=== PATIENT | female | born 1940 | race Hispanic/Latino ===

== ENCOUNTER 2019-04-03 05:51 | Observation (INO) | payer MEDICARE, OTHER ==
[2019-03-30 10:53] LABS: BASOPHILS % 0.5 % (0.0-1.0); EOSINOPHILS # (AUTO) 0.4 (0.0-0.4); EOSINOPHILS % 4.2 % (0.0-6.0); HEMOGLOBIN 13.7 g/dL (12.0-16.0); LYMPHOCYTES # (AUTO) 2.3 (1.0-3.2); LYMPHOCYTES % 26.4 % (18.0-39.1); MEAN CORPUSCULAR HEMOGLOBIN 31.6 pg (28-32); MEAN CORPUSCULAR HGB CONC 33.4 g/dL (31-35); MEAN CORPUSCULAR VOLUME 94.5 fL (81-99); MONOCYTES # (AUTO) 0.6 (0.2-0.8); MONOCYTES % 6.3 % (4.4-11.3); NEUTROPHILS # (AUTO) 5.4 (2.1-6.9); NEUTROPHILS % 62.3 % (38.7-80.0); PLATELET COUNT 266 x10e3/uL (140-360); RED BLOOD COUNT 4.34 x10e6/uL (3.6-5.1); RED CELL DISTRIBUTION WIDTH 13.1 % (11.7-14.4)
[2019-03-30 11:12] LABS: ANION GAP 14.7 mmol/L (8-16); CALCIUM 10.3 mg/dL (8.4-10.2); CREATININE, SERUM 0.96 mg/dL (0.57-1.11); POTASSIUM 4.7 mmol/L (3.5-5.1)
--- NOTE | 2019-03-30 11:39 | Diagnostic Imaging Report ---
Chest, 2 views, 03/30/2019. History: Preop, right knee surgery. Comparison: None available. Findings: The cardiomediastinal silhouette and pulmonary vasculature are within normal limits. The lungs are clear without evidence of consolidation or pleural effusion. Degenerative changes are noted throughout the thoracic spine. There are no acute osseous or soft tissue abnormalities. Impression: No acute cardiopulmonary abnormality. Signed by: Kev Hall on 03/30/2019 11:36 AM
[~2019-04-03] VITALS: Ht 157.5 cm; Wt 74.0 kg
[~2019-04-03 05:51] MED LIST: ALENDRONATE SOD70 MG PO; CALCIUM CARBONATE PO; CHOLECALCIFEROL PO; COQ-10100 MG PO; FARXIGA5 MG PO; JANUVIA100 MG PO; LOSARTAN POTAS100 MG PO; METFORMIN HCL500 MG PO; PRAVASTATIN SOD20 MG PO; SUCRALFATE1 GM PO; ULTRAM50 MG PO
[2019-04-03] MEDS ORDERED: CELECOXIB 200 MG CAP ONE (06:29)
[2019-04-03] MEDS ORDERED: GABAPENTIN 300 MG CAP ONE (06:29)
[2019-04-03] MEDS ORDERED: DEXAMETHASONE SOD PHOS 10 MG/1 ML VIAL ONE (06:29)
[2019-04-03] MEDS ORDERED: CEFAZOLIN SOD 1 GM/NS 50ML 100 ML IV ONE (06:29)
[2019-04-03] MEDS ORDERED: SODIUM CHLORIDE 0.9% 500ML 500 ML ONE (06:42)
[2019-04-03] MEDS ORDERED: VANCOMYCIN HCL 1,000 MG ONE (06:42)
[2019-04-03] MEDS ORDERED: BACITRACIN 50,000 UNIT VIAL ONE (06:43)
[2019-04-03] MEDS ORDERED: TRANEXAMIC ACID 1,000 MG/10 ML ML ONE (06:43)
[2019-04-03] MEDS ORDERED: ROPIVACAINE 246.25 MG, EPINEPHRINE HCL 1:1000 1ML 0.5 MG, CLONIDINE HCL 0.08 MG, KETORO... INJ ONE ×5 (08:45)
[2019-04-03] MEDS: SODIUM CHLORIDE 0.9% 1000ML 1,000 ML IV SCH ×2 (09:05→19:05)
[2019-04-03] MEDS ORDERED: PROMETHAZINE HCL (IM) 25 MG/ML VIAL IM PRN (09:15)
[2019-04-03] MEDS ORDERED: ACETAMINOPHEN 650 MG SUPP PR PRN (09:15)
[2019-04-03] MEDS ORDERED: DOCUSATE SODIUM 100 MG CAP PO PRN (09:15)
[2019-04-03] MEDS ORDERED: HYDROCODONE/APAP 5MG-325MG TAB PO PRN (09:15)
[2019-04-03] MEDS ORDERED: ONDANSETRON HCL INJ 2MG/ML 2ML 2 MG/ML VIAL IV PRN (09:15)
[2019-04-03] MEDS ORDERED: KETOROLAC TROMETHAMINE 30 MG/ML VIAL IV PRN (09:15)
[2019-04-03] MEDS ORDERED: HYDROCODONE/APAP 7.5MG-325MG 1 EA TAB PO PRN (09:15)
[2019-04-03] MEDS ORDERED: DIPHENHYDRAMINE HCL INJ 50 MG/ML VIAL IM/IV PRN (09:15)
[2019-04-03] MEDS ORDERED: FENTANYL CITRATE/PF 100MCG/2 ML INJ ONE ×2 (10:13→17:17)
--- NOTE | 2019-04-03 10:38 | Operative Report ---
DATE OF PROCEDURE: 04/03/2019 SURGEON: Aron Easton MD VICE PRESIDENT PROCESS: Zoran Isidro, certified PA. PREOPERATIVE DIAGNOSIS: Osteoarthritis, right knee. POSTOPERATIVE DIAGNOSIS: Osteoarthritis, right knee. PROCEDURE: Right total knee arthroplasty. INDICATIONS: The patient is a 78-year-old lady, who has severe end-stage arthritis of her right knee. She has failed conservative management and would like to proceed with a right total knee replacement. The risks and benefits have been discussed. All of her questions have been answered. She states she understands and wishes to proceed. PROCEDURE IN DETAIL: The patient was brought to the operating room and placed under general anesthetic. She received prophylactic antibiotics, a regional block and tranexamic acid in the holding area. The right lower extremity was prepped and draped in a sterile manner. A preoperative time-out was performed. The extremity was exsanguinated and a proximal tourniquet was inflated to 300 mmHg. An anterior incision with a medial parapatellar arthrotomy was performed. Clear synovial fluid was removed from the joint. Limited medial dissection was performed due to the valgus deformity. The knee was brought up into flexion. Meniscal remnants, marginal osteophytes in the cruciate ligaments were removed. A Jean and NephKaleidoscope knee system were used throughout the case. An extramedullary cutting guide was used to resect the proximal tibia. The tibial base plate was a size #3. The central fin punch was impacted and attention was directed towards the distal femur. An intramedullary cutting guide was used to resect the distal femur in 6 degrees of valgus and rotation referencing off a combination of landmarks including Whitesides line, the epicondylar axis and the posterior condyles. Some degree of posterior lateral femoral hypoplasia was taken into account. The femoral component was a size #4. The anterior and posterior cuts were made. A trial reduction was performed. A 9 mm ultracongruent tibial insert provided appropriate soft tissue balancing in full extension and 90 degrees of flexion. No lateral soft tissue was felt to be necessary. The patella was inspected. This was severely worn and was only 17 mm thick. The patella was resurfaced with a 29 mm x 9 mm patellar button. Patellar tracking was concentric. A slight internal lateral retinacular release was performed. The trial implants were then all removed. A 100 mL premixed pericapsular PRAMOD injection was placed into the surrounding soft tissue. The knee was thoroughly irrigated with a shower tip pulsatile lavage. All bone cuts had been irrigated with a spray mixture of diluted vancomycin and polymyxin spray. The components were cemented into place using a single mix of high viscosity Biomet cement preloaded with gentamicin. Care was taken to remove extravasated cement. The wound was further irrigated while the cement cured. The arthrotomy was then carefully closed with interrupted #1 Ethibond. The knee was put through flexion and extension to ensure a secure closure. The skin was closed with subcuticular Vicryl and mirna. A sterile Aquacel bandage was applied. The patient was extubated and transported to the recovery room in stable condition. Blood loss was minimal. All needle and sponge counts were correct. Aron Easton MD DR/ELIOT /[id number]
--- NOTE | 2019-04-03 10:40 | Diagnostic Imaging Report ---
EXAMINATION: KNEE RIGHT 1-2 VIEWS INDICATION: Postoperative COMPARISON: None FINDINGS: Portable AP and lateral images of the right knee demonstrate immediate postoperative findings of right total knee replacement. Alignment appears anatomic. No unexpected fracture. Postoperative subcutaneous soft tissue emphysema. Small joint effusion. Surgical skin mirna in place. IMPRESSION: Anatomic alignment status post right total knee replacement. Signed by: Nick Mathews MD on 04/03/2019 10:37 AM
[2019-04-03 11:30] VITALS: BP 125/58
[2019-04-03] MEDS: ACETAMINOPHEN 1000 MG/100 ML IV SCH ×3 (13:04→23:24)
[2019-04-03] MEDS: CEFAZOLIN SOD 1 GM/NS 50ML 50 ML IV SCH ×2 (14:00→21:56)
[2019-04-03] MEDS ORDERED: EPINEPHRINE HCL 1:1000 1ML 1 MG/ML AMP ONE (14:15)
[2019-04-03] MEDS ORDERED: BUPIVACAINE HCL 0.5% INJ 30 ML VIAL INJ ONE (14:15)
[2019-04-03 16:04] VITALS: BP 113/54
[2019-04-03] MEDS ORDERED: CELECOXIB 100 MG CAP PO SCH (17:00)
[2019-04-03] MEDS ORDERED: ACETAMINOPHEN 1000 MG/100 ML IV ONE (17:02)
[2019-04-03] MEDS ORDERED: LIDOCAINE HCL 2% LOCAL INJ 5 ML SDV VIAL INJ ONE (17:02)
[2019-04-03] MEDS ORDERED: SEVOFLURANE INHAL SOLN 250 ML PEN BTL ONE (17:02)
[2019-04-03] MEDS ORDERED: PROPOFOL IV EMULSION 10 MG/ML 20 ML VIAL ONE (17:02)
[2019-04-03] MEDS ORDERED: EPHEDRINE SULFATE INJ 50 MG/ML VIAL ONE (17:02)
[2019-04-03] MEDS ORDERED: ONDANSETRON HCL INJ 2MG/ML 2ML 2 MG/ML VIAL ONE (17:02)
[2019-04-03] MEDS: CELECOXIB 200 MG CAP PO SCH (17:06)
[2019-04-03] MEDS: ASPIRIN 325 MG TAB PO SCH (17:06)
[2019-04-03] MEDS: METFORMIN HCL 500 MG TAB PO SCH (17:09)
[2019-04-03] MEDS ORDERED: MIDAZOLAM HCL 2 MG/2 ML VIAL ONE (17:17)
--- NOTE | 2019-04-03 17:39 | Consultation ---
DATE OF CONSULTATION: 04/03/2019 REASON FOR CONSULTATION: Medical management. HISTORY OF PRESENT ILLNESS: This is a 78-year-old white woman, who presented to [facility] with diagnosis of advanced right knee degenerative joint disease. Today, the patient underwent successful right total knee arthroplasty. This surgery was performed by Dr. Aron Easton. The patient voices no complaints other than numbness in her bilateral legs. The patient apparently received regional block during the surgery today. REVIEW OF SYSTEMS: GENERAL: Weight is stable. No fever or chills. HEENT: No headaches. No vision changes. CARDIOVASCULAR: No chest pain. No shortness of breath or cough. GI: No nausea, vomiting, diarrhea, or constipation. : No dysuria, hematuria, or incontinence. NEUROMUSCULAR: The patient complains of arthritic pain in her left knee also. ALLERGIES: NO KNOWN DRUG ALLERGIES. PAST MEDICAL HISTORY: 1. Mild obesity. 2. Osteoporosis. 3. Type 2 diabetes mellitus. 4. Hypertensive heart disease. 5. Dyslipidemia. FAMILY HISTORY: Noncontributory. SOCIAL HISTORY: This woman is single. She lives with adult daughter. No history of tobacco or alcohol use. She is unemployed. MEDICATIONS: 1. Alendronate 70 mg weekly. 2. Farxiga 5 mg daily. 3. Losartan 100 mg daily. 4. Metformin 1000 mg b.i.d. 5. Pravastatin 20 mg at bedtime. 6. Sitagliptin 100 mg daily. 7. Carafate 1 g before every meal, at bedtime. 8. Tramadol 50 mg once daily as needed for arthritic pain. 9. Coenzyme Q10, 100 mg daily. 10. Os-Nazario with vitamin. 11. Calcium with vitamin D, 1 tablet daily. PHYSICAL EXAMINATION: GENERAL: She is awake, alert. She is oriented. She speaks only Georgian. Her two daughters are bedside. VITAL SIGNS: Height 5 feet 2 inches, weight 164 pounds, BMI is 30. Blood pressure is 112/54, pulse 98, respiratory rate 16, temperature 97.7, oxygen saturation 96% on room air. INTEGUMENT: Skin is warm and dry. No pallor, jaundice, and diaphoresis. HEENT: Anterior sclerae. Moist mucous membranes. NECK: Supple. CARDIOVASCULAR: Regular rate and rhythm. The patient has S4 gallop. LUNGS: No rales. No rhonchi. No wheezes. ABDOMEN: Mildly obese. EXTREMITIES: No edema. The patient's left knee has bony deformity consistent with arthritis. The right knee is currently dressed. NEUROLOGIC: Intact. No gross deficits appreciated. IMPRESSION: 1. Status post right total knee arthroplasty. 2. Hypertensive heart disease. 3. Type 2 diabetes mellitus. PLAN: 1. Encourage incentive spirometer usage to prevent atelectasis. 2. Mobilize patient. 3. Blood glucose monitoring control. I would like to thank Dr. Aron Easton for involving me in the care of this patient. MD LISSET Khoury/ELIOT /[id number] MTDVinayak
--- OUTSIDE RECORDS SUMMARY | 2019-04-03 19:34 | XMS REPORT ---
Author [facility] Address Unknown Phone Unavailable Care Team Providers Care Wound Treatment Rn Name Role Phone PEREZ CASTRO Unavailable Unavailable Vinayak HILLIARD Unavailable Unavailable Problems This patient has no known problems. Allergies, Adverse Reactions, Alerts This patient has no known allergies or adverse reactions. Medications This patient has no known medications. Results Test Description Test Time Test Comments Text Results Atomic Results Result Comments KNEE RIGHT 1-2 VIEWS 2019-04-03 10:36:00 [place] [address] Patient Name: YANELI HEATON MR #: [id number] : 1940 Age/Sex: 78/F Req #: [id number] [facility] Physician: PEREZ CASTRO MD Ordered by: PEREZ CASTRO MD Report #: [id number] Location: PACU V Room/Bed: [facility] Procedure: [id number] DX/KNEE RIGHT 1-2 VIEWS Exam Date: 04/03/19 Exam Time: 0932 REPORT STATUS: Signed EXAMINATION: KNEE RIGHT 1-2 VIEWS INDICATION: Postoperative COMPARISON: None FINDINGS: Portable AP and lateral images of the right knee demonstrate immediate postoperative findings of right total knee replacement. Alignment appears anatomic. No unexpected fracture. Postoperative subcutaneous soft tissue emphysema. Small joint effusion. Surgical skin mirna in place. IMPRESSION: Anatomic alignment status post right total knee replacement. Signed by: Elmo Blandon MD on 04/03/2019 10:37 AM Dictated By: ELMO BLANDON MD 1037 Transcribed By: NAM on 04/03/19 1037 COPY TO: PEREZ CASTRO MD CHEST 2 VIEWS 2019-03-30 11:36:00 [place] [address] Patient Name: YANELI HEATON MR #: [id number] : 1940 Age/Sex: 78/F Req #: [id number] Adm Physician: Ordered by: PEREZ CASTRO MD Report #: [id number] Location: OR Room/Bed: Procedure: [id number] DX/CHEST 2 VIEWS Exam Date: 03/30/19 Exam Time: 1040 REPORT STATUS: Signed Chest, 2 views, 03/30/2019. History: Preop, right knee surgery. Comparison: None available. Findings: The cardiomediastinal silhouette and pulmonary vasculature are within normal limits. The lungs are clear without evidence of consolidation or pleural effusion. Degenerative changes are noted throughout the thoracic spine. There are no acute osseous or soft tissue abnormalities. Impression: No acute cardiopulmonary abnormality. Signed by: Kev Hall on 03/30/2019 11:36 AM Dictated By: KEV HALL MD 1136 Transcribed By: NAM on 03/30/19 1136 COPY TO: PEREZ CASTRO MD CT BRAIN WO [place] [address] Patient Name: YANELI HEATON MR #: [id number] : 1940 Age/Sex: 76/F Req #: [id number] [facility] Physician: Ordered by: SAI CASTRO NP Report #: [id number] Location: ER Room/Bed: Procedure: [id number] CT/CT BRAIN WO Exam Date: 01/27/17 Exam Time: 1425 REPORT STATUS: Signed EXAMINATION: Head CT HISTORY: Headache revision last 2 weeks, hypertension, dizziness, diabetes. COMPARISON: None. TECHNIQUE: Multidetector axial images were obtained without contrast from the foramen magnum to the vertex . The images were reconstructed using brain and bone algorithms. Thin section brain images were reformatted into coronal and sagittal planes. Intravenous contrast: None. Motion/streaking artifact limits the evaluation of the skull base and posterior cranial fossa. FINDINGS: Parenchyma: 1. No abnormal densities. 2. No mass or hemorrhage. No CT evidence of acute territorial vascular insult. Extra-axial spaces:No abnormal density. No extra-axial fluid collections Brain volume: Normal for age. Ventricles: No hydrocephalus or displacement. Arteries: No density suggestive of thrombus. Dural sinuses: No abnormal density. Extra-axial spaces: No abnormal density. Foramen magnum: No mass, Chiari malformation, or basilar in vagination. Sella: No obvious mass. Paranasal/mastoid sinuses: Imaged portions unremarkable. Skull/Scalp: No lytic or blastic lesions. No fractures. IMPRESSION: No intracranial abnormalities, particularly no hemorrhage. Signed by: Dr. Manisha Jarrell M.D. on 01/27/2017 3:26 PM Dictated By: MANISHA JARRELL MD 1526 COPY TO: SAI CASTRO NP
[2019-04-03 20:00] VITALS: BP 106/63
[2019-04-03 20:49] VITALS: BP 106/63
[2019-04-03] MEDS ORDERED: ZOLPIDEM TARTRATE 5 MG TAB PO PRN (21:00)
[2019-04-03] MEDS: SUCRALFATE 1 GM TAB PO SCH (21:56)
[2019-04-03] MEDS: PRAVASTATIN 20 MG TAB PO SCH (21:56)
[2019-04-04] VITALS (8 sets, daily range): BP systolic 92–116; BP diastolic 53–69
[2019-04-04] MEDS: SODIUM CHLORIDE 0.9% 1000ML 1,000 ML IV SCH ×3 (05:05→15:05)
[2019-04-04 05:33] LABS: BASOPHILS % 0.1 % (0.0-1.0); EOSINOPHILS # (AUTO) 0.1 (0.0-0.4); EOSINOPHILS % 0.3 % (0.0-6.0); HEMATOCRIT 34.2 % (34.2-44.1); HEMOGLOBIN 11.5 g/dL (12.0-16.0); LYMPHOCYTES # (AUTO) 1.3 (1.0-3.2); LYMPHOCYTES % 7.8 % (18.0-39.1); MEAN CORPUSCULAR HEMOGLOBIN 31.4 pg (28-32); MEAN CORPUSCULAR HGB CONC 33.6 g/dL (31-35); MEAN CORPUSCULAR VOLUME 93.4 fL (81-99); MONOCYTES # (AUTO) 0.8 (0.2-0.8); MONOCYTES % 4.8 % (4.4-11.3); NEUTROPHILS % 86.3 % (38.7-80.0); PLATELET COUNT 222 x10e3/uL (140-360); RED BLOOD COUNT 3.66 x10e6/uL (3.6-5.1); RED CELL DISTRIBUTION WIDTH 12.6 % (11.7-14.4)
[2019-04-04] MEDS: ACETAMINOPHEN 1000 MG/100 ML IV SCH (05:45)
[2019-04-04 05:55] LABS: ALBUMIN 3.2 g/dL (3.5-5.0); ALBUMIN/GLOBULIN RATIO 1.2 (0.8-2.0); CALCIUM 9.1 mg/dL (8.4-10.2); CREATININE, SERUM 1.55 mg/dL (0.57-1.11)
[2019-04-04] MEDS: CEFAZOLIN SOD 1 GM/NS 50ML 50 ML IV SCH (06:05)
[2019-04-04] MEDS: METFORMIN HCL 500 MG TAB PO SCH (08:00)
[2019-04-04] MEDS: SUCRALFATE 1 GM TAB PO SCH ×4 (08:30→22:10)
[2019-04-04] MEDS ORDERED: SITAGLIPTIN 100 MG TAB PO SCH (09:00)
[2019-04-04] MEDS ORDERED: LOSARTAN POTASSIUM 100 MG TAB PO SCH (09:00)
[2019-04-04] MEDS: CELECOXIB 200 MG CAP PO SCH (09:03)
[2019-04-04] MEDS: ASPIRIN 325 MG TAB PO SCH ×2 (09:03→17:04)
[2019-04-04] MEDS ORDERED: ONDANSETRON HCL 4 MG ORAL DISINTEGRATING TAB PO PRN (09:15)
[2019-04-04] MEDS ORDERED: SODIUM CHLORIDE 0.9% 250ML 250 ML ONE (09:43)
--- NOTE | 2019-04-04 10:28 | Progress Note ---
DATE: 04/04/2019 CHIEF COMPLAINT/HISTORY OF PRESENT ILLNESS: This is a 78-year-old woman, who was initially admitted to [facility] with advanced right knee degenerative joint disease. Yesterday, the patient underwent successful right total knee arthroplasty performed by Dr. Aron Easton. The patient voices no complaints. The patient is ambulating with physical therapy. However, today the patient was found to have a BUN and creatinine of 28 and 1.56 respectively. Her BUN and creatinine prior to surgery on March 30, 2019, was 16 and 0.96 respectively. Also, today's white blood cell count 16,200 with 86% segmented neutrophils. Hemoglobin 11.5 g/dL. Moreover, her potassium is 5.0. REVIEW OF SYSTEMS: As per HPI. PHYSICAL EXAMINATION: GENERAL: She is awake, alert. She is oriented. She speaks only French. Her adult daughter is at bedside. She has a flat affect. She does not appear to be in any obvious distress. VITAL SIGNS: Blood pressure 93/53, pulse 72, respiratory rate 16, temperature 99.7, and oxygen saturation 97% on room air. BMI 30. INTEGUMENT: Skin is warm and dry. No pallor, jaundice, diaphoresis. HEENT: Anterior sclerae. Moist mucous membranes. NECK: Supple. CARDIOVASCULAR: Regular rate and rhythm with an S4 gallop. LUNGS: No rales. No rhonchi or wheezes. ABDOMEN: Benign. Normal bowel sounds, nontender. EXTREMITIES: No edema or deformity. The right knee is currently dressed. NEUROLOGIC: Intact. No focal deficits appreciated. DIAGNOSES: 1. Status post right total knee arthroplasty. 2. Acute renal insufficiency, likely secondary to acute tubular necrosis. 3. Hypertensive heart disease. 4. Type 2 diabetes mellitus. PLAN: 1. We will discontinue lactated Ringer's and start normal saline intravenously since the patient has hyperkalemia. 2. We will discontinue all NSAIDs and CAMPOS-2 inhibitors such as ketorolac and Celebrex respectively since the patient has acute renal insufficiency. 3. We will discontinue losartan because of the patient's acute renal insufficiency. 4. We will stop metformin as well as Farxiga due to the patient's acute renal insufficiency. 5. Continue intravenous fluids as previous stated. 6. We will follow renal function and electrolytes. 7. Mobilize physical therapy. 8. Encourage incentive spirometry usage to prevent atelectasis. Tentative discharge tomorrow on February. TIME SPENT: I spent 40 minutes in care of this patient. MD LISSET Khoury/ELIOT /[id number] MTDVinayak
[2019-04-04] MEDS ORDERED: ACETAMINOPHEN 1000 MG/100 ML IV PRN (12:00)
[2019-04-04] MEDS ORDERED: ACETAMINOPHEN 325 MG TAB PO PRN (12:15)
[2019-04-04] MEDS: SITAGLIPTIN 100 MG TAB PO SCH (17:04)
[2019-04-04] MEDS: PRAVASTATIN 20 MG TAB PO SCH (22:10)
[2019-04-05] VITALS: BP 147/67
[2019-04-05] MEDS: SODIUM CHLORIDE 0.9% 1000ML 1,000 ML IV SCH ×2 (00:14→11:05)
[2019-04-05 04:00] VITALS: BP 140/65
[2019-04-05 05:43] LABS: BASOPHILS % 0.2 % (0.0-1.0); EOSINOPHILS # (AUTO) 0.2 (0.0-0.4); EOSINOPHILS % 1.5 % (0.0-6.0); HEMATOCRIT 32.3 % (34.2-44.1); HEMOGLOBIN 10.7 g/dL (12.0-16.0); LYMPHOCYTES # (AUTO) 2.3 (1.0-3.2); MEAN CORPUSCULAR HEMOGLOBIN 31.8 pg (28-32); MEAN CORPUSCULAR HGB CONC 33.1 g/dL (31-35); MEAN CORPUSCULAR VOLUME 95.8 fL (81-99); MONOCYTES % 7.4 % (4.4-11.3); NEUTROPHILS # (AUTO) 9.4 (2.1-6.9); NEUTROPHILS % 72.5 % (38.7-80.0); PLATELET COUNT 196 x10e3/uL (140-360); RED BLOOD COUNT 3.37 x10e6/uL (3.6-5.1); RED CELL DISTRIBUTION WIDTH 12.9 % (11.7-14.4)
[2019-04-05 06:03] LABS: ANION GAP 12.1 mmol/L (8-16); CALCIUM 8.9 mg/dL (8.4-10.2); CREATININE, SERUM 1.14 mg/dL (0.57-1.11); POTASSIUM 5.1 mmol/L (3.5-5.1)
[2019-04-05 08:13] VITALS: BP 124/65
[2019-04-05] MEDS: SUCRALFATE 1 GM TAB PO SCH ×3 (08:30→16:24)
[2019-04-05] MEDS: ASPIRIN 325 MG TAB PO SCH ×2 (08:30→16:24)
[2019-04-05 08:49] VITALS: BP 124/65
--- NOTE | 2019-04-05 10:33 | Discharge Summary ---
ADMIT DIAGNOSES: 1. Advanced right knee degenerative joint disease. 2. Hypertensive heart disease. 3. Type 2 diabetes mellitus. 4. Mild obesity, BMI 30. DISCHARGE DIAGNOSES: 1. Status post right total knee arthroplasty. 2. Acute renal insufficiency secondary to acute tubular necrosis, resolving. 3. Type 2 diabetes mellitus. 4. Hypertensive heart disease. 5. Mild obesity, BMI 30. HOSPITAL COURSE: This is a 78-year-old woman, who was initially admitted to [facility] with a diagnosis of advanced right knee degenerative joint disease. During this hospitalization, the patient underwent successful right total knee arthroplasty. The patient tolerated the surgery quite well. Unfortunately, during this hospitalization, the patient experienced episode of acute renal insufficiency, likely secondary to acute tubular necrosis. The patient improved clinically in regard to renal function with intravenous fluids. Several medications were discontinued due to her acute renal insufficiency, namely losartan, metformin, Farxiga, ketorolac and Celebrex. The patient tolerated physical therapy quite well during this hospital stay. The patient's BUN and creatinine during this hospitalization got as high as 28 and 1.56 respectively. On the day of discharge, the patient's BUN and creatinine was 31 and 1.14 respectively. The patient's condition on discharge was stable. Once again, the patient was ambulating multiple times a day with physical therapy prior to discharge. DISCHARGE MEDICATIONS: 1. Januvia 100 mg daily. 2. Colace 100 mg b.i.d. 3. Aspirin 81 mg b.i.d. for three more weeks. 4. Tylenol No. 3 one pill every 4 hours p.r.n. pain, 20 prescribed, no refills. 5. Carafate 1 g before meals three times a day. 6. Pravastatin 20 mg at bedtime. 7. Calcium with vitamin D supplementation once daily. 8. Coenzyme Q10 100 mg once daily. The following medications were discontinued until further notice namely: 1. Losartan. 2. Metformin. 3. Farxiga. FOLLOWUP INSTRUCTIONS: The patient was instructed to follow up with Dr. Aron Easton within 1 week and with her primary care physician namely Dr. Thomas Boo within 7 to 10 days. It was recommended that the patient have a basic metabolic profile drawn prior to resuming the following medications: Metformin, losartan, and Farxiga. MD LISSET Khoury/MODL /[id number] cc: MD Thomas Haque MD MTDD
[2019-04-05] MEDS: SITAGLIPTIN 100 MG TAB PO SCH (16:24)
== END 2019-04-05 16:19 | disposition home health service (06) ==
LOC: OR 05:51 → PACU V 09:07 → MED/SURG 11:32
PROVIDERS: ADMIT Specialist; ATTEND Specialist
DX: M17.11 Unilateral primary osteoarthritis, right knee (principal); I11.9 Hypertensive heart disease without heart failure; E87.5 Hyperkalemia; E66.9 Obesity, unspecified; Z68.30 Body mass index [BMI] 30.0-30.9, adult; E11.9 Type 2 diabetes mellitus without complications; E78.00 Pure hypercholesterolemia, unspecified; Z90.49 Acquired absence of other specified parts of digestive tract; Z79.84 Long term (current) use of oral hypoglycemic drugs; Z01.810 Encounter for preprocedural cardiovascular examination; Z01.812 Encounter for preprocedural laboratory examination; Z01.811 Encounter for preprocedural respiratory examination; N28.9 Disorder of kidney and ureter, unspecified
CPT/HCPCS: 36415; 71046; 80048; 80053; 82948; 85025; 86850; 86900; 86920; 97139; C1713; G0378; J0171; J0690; J1100; J1885; J2001; J2250; J2405; J2795; J3010; J3370; J7030; J7040; J7050